=== PATIENT | female | born 1995 | race Caucasian/White ===

== ENCOUNTER 2019-02-21 14:15 | Outpatient (CLI) | payer MEDICAID, SELFPAY ==
[2019-02-21 14:30] VITALS: RESP 18; TEMP 36.7; BMI 27.0
--- NOTE | 2019-02-21 15:16 | US_ITS ---
WS: [id number] OB ultrasound, limited, 02/21/2019 Clinical Data: CERVICAL LENGTH Comparison: OB ultrasound, 12/24/2018. Findings: Cervical length was 5.60 cm with no previa. The cervix was closed. Placenta is anterior. US/US OB limited [id number] Impression: 1. Cervical length 5.60 cm. 2. Anterior placenta.
[2019-02-21 18:46] VITALS: RESP 18; TEMP 36.7
== END 2019-02-21 16:10 | disposition home or self-care (01) ==
PROVIDERS: Family Provider Family Medicine; Visit Provider Family Medicine
DX: O26.899 Other specified pregnancy related conditions, unspecified trimester (principal); Z3A.00 Weeks of gestation of pregnancy not specified; R25.2 Cramp and spasm; R11.10 Vomiting, unspecified
CPT/HCPCS: 76815; 99211

== ENCOUNTER 2019-02-25 13:30 | Outpatient (CLI) | payer MEDICAID, SELFPAY ==
--- NOTE | 2019-02-25 13:42 | US_ITS ---
WS: [id number] ULTRASOUND OB COMPLETE TECHNIQUE: Complete ultrasound. CLINICAL INFORMATION: ANATOMY CHECK/HIGH RISK COMPARISON: None. FINDINGS: Cervix measures 4.1 cm Single interuterine gestation is identified with breech presentation. Placenta is anterior. Placenta grade 1. Normal amniotic fluid volume. cardiac activity: 157 BPM. AGA: 23w4d VIRGIL by ultrasound: 06/20/2019 Estimated weight: 598 g BDP: 5.7 cm = 23w3d HC: 21.6 cm = 23w5d AC: 19.1 cm = 23w6d FEMUR LENGTH: 4.0 cm = 23w0d Anatomic survey: Anatomic survey is normal. Normal stomach. Kidneys and bladder are normal. Normal 3 vessel cord. Norm al 3 vessel cord insertion. Normal 4 chamber heart. Normal spine. Intracranial contents are normal. N ormal posterior fossa and cisterna magna. US/US OB >= 14 weeks fetus [id number] IMPRESSION: 1. Single intrauterine with visualized cardiac activity. AGA 23w4d w ith VIRGIL 06/20/2019. 2. Placenta is anterior. No evidence of abruption or previa. 3. presentation is breech. 4. anatomic survey is normal. 5. Normal amniotic fluid volume.
== END 2019-02-25 13:31 | disposition home or self-care (01) ==
PROVIDERS: Family Provider Family Medicine; PCP Family Medicine; Visit Provider Family Medicine
DX: O09.92 Supervision of high risk pregnancy, unspecified, second trimester (principal); Z3A.23 23 weeks gestation of pregnancy
CPT/HCPCS: 76805

== ENCOUNTER 2019-03-23 21:37 | Emergency (ER) | payer MEDICAID, SELFPAY ==
[2019-03-23 21:59] VITALS: BP 115/65; PULSE 100; RESP 18; TEMP 36.9; O2SAT 99; BMI 28.1
--- NOTE | 2019-03-23 22:49 | ECG_ITS ---
Measurements Intervals [place] Rate: 91 P: 17 ME: 197 QRS: 26 QRSD: 86 T: 29 QT: 342 QTc: 421 SINUS RHYTHM NONSPECIFIC T-WAVE ABNORMALITY No previous ECG available for comparison Electronically Signed On 03-24-2019 20:04:31 [employer] by Caitlin Parker M.D. [id number]
--- NOTE | 2019-03-23 22:50 | ED_ITS ---
HPI - Nausea/Vomiting/Diarrhea General: Chief complaint: Nausea/Vomiting/Diarrhea Stated complaint: puking up blood/28 weeks preg Time Seen by Provider: 03/23/19 22:41 History of Present Illness: HPI Narrative: Patient is a 23-year-old female who presents to the emergency department with 2 episodes of vomiting and one episode of bright red blood specks on the emesis today. She states she was feeling nauseated earlier but feeling a little bit better. She complains of some dizziness and lightheadedness. She states she is 28 weeks . She denies any vaginal bleeding, vaginal discharge, call pain or cramping. States she is G4, P2, Ab1. Unknown type and Rh. She denies any dysuria or fever. She states she did take a hydrocodone earlier for a broken tooth. She does see OB services. History of UTI, thyroid issues, iron deficiency anemia. She did start iron a few days ago. 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 She has had ureteral surgery as well and umbilical hernia surgery. No allergies medications. MD elicited complaint: nausea and vomiting Description of vomiting: bloody (blood tinged speck with emesis) Exacerbating factors: standing Relieving factors: none Associated symtoms: Reports other (dizzy, lightheaded); Denies anxiety, change in vision, dysuria or headache(s) Review of Systems Const: Denies: fever Eyes: Denies: change in vision ENMT: Denies: dry mouth Card: Denies: edema Resp: Denies: shortness of breath GI: Denies: abdominal pain : Denies: flank pain, difficulty urinating or painful urination Musc: Denies: extremity swelling or redness Skin/Breast: Denies: rash or skin swelling Neuro: Denies: headache or weakness in extremities Psych: Denies: anxiety Endo: Denies: excessive urination Joey/Lymph: Denies: purpura All/Imm: Denies: hives PFSH ED PFSH: Statuses (acute, chronic, etc) shown below reflect problem list status as previously entered and may not be historically accurate Social History Smoking and tobacco status: current every day smoker Physical Exam Const: COMMON NORMALS: no apparent distress, oriented x3 and alert ORIENTATION/CONSCIOUSNESS: Yes oriented to person and Yes oriented to place HENMT: COMMON NORMALS: normocephalic HEAD & SCALP: normal to inspection and normocephalic Eye: COMMON NORMALS: PERRL, EOMs intact bilaterally and conjunctivae normal GENERAL EYE: normal appearance of both eyes CONJUNCTIVA: Yes conjunctivae normal PUPIL: Yes PERRL Neck/C-Spine: COMMON NORMALS: full ROM, no lymphadenopathy, supple, no meningeal signs and no JVD GENERAL: Yes normal visual inspection and Yes trachea midline Lymph: LYMPHATIC: no lymphadenopathy noted Chest: COMMONS NORMALS: inspection of chest normal Resp: COMMON NORMALS: normal respiratory effort, no retractions and clear to auscultation bilaterally EFFORT & INSPECTION: Yes able to speak in complete sentences AUSCULTATION: clear to auscultation bilaterally Cardio: COMMON NORMALS: no JVD, regular rate and regular rhythm RATE: regular rate RHYTHM: regular rhythm GI: INSPECTION: Yes normal to inspection and Yes other (gravid abdomen) AUSCULTATION: Yes normoactive bowel sounds : COMMON NORMALS: Yes no CVA tenderness BLADDER/KIDNEY EXAM: Yes no CVA tenderness Back/Pelvis: COMMON NORMALS: no CVA tenderness THORACIC SPINE/UPPER BACK: Yes normal to inspection LUMBAR SPINE/LOWER BACK: Yes normal to inspection Extremity: COMMON NORMALS: normal to inspection, full ROM and normal capillary refill GENERAL: Yes normal exam except as noted Neuro: COMMON NORMALS: oriented x3, CN's II-XII intact bilaterally, moves all extremities, no focal motor deficits and no sensory deficits noted SENSORIUM/ORIENTATION: Yes alert, Yes oriented to person and Yes oriented to place MENINGEAL SIGNS: Yes no meningeal signs SPEECH: speech normal GAIT: Yes normal gait Psych: COMMON NORMALS: mental status grossly normal, thought process normal, cooperative, affect normal and speech normal APPEARANCE: Yes grossly normal SPEECH: Yes normal speech THOUGHT PROCESS: normal thought process Skin: COMMON NORMALS: no rashes or lesions noted, no wounds and skin turgor normal GENERAL SKIN EXAM: no rashes or lesions noted, elasticity normal and turgor normal Course ED course: Will place IV, obtain lab, heart tones for medical screening exam. Orthostatics ordered. Patient only had 1 episode of blood-tinged's emesis. Vital Signs: Vital signs: Vital Signs Temperature 98.5 F 03/23/19 21:59 Pulse Rate 78 03/23/19 23:40 Respiratory Rate 18 03/23/19 21:59 Blood Pressure 96/47 03/23/19 23:40 Pulse Oximetry 99 03/23/19 21:59 MDM - Nausea/Vomiting/Diarrhea MDM Narrative: Medical decision making narrative: Patient with ongoing iron deficiency anemia. She denies any melena or hematochezia. She denies any abdominal pain, vaginal bleeding or discharge with her . tones per nursing staff. Patient does have UTI. Will give Rocephin in the emergency department and discharged home with Macrobid. Patient has received a liter of fluids in the emergency room. She is instructed follow-up with her primary care provider for ongoing evaluation. No indication for additional laboratory imaging studies while in the emergency department for her medical screening exam. Lab Data: Labs: Lab Results 03/23/19 03/23/19 03/23/19 Range/Units 22:30 23:00 23:00 WBC 9.0 (4.0-10.0) 10^3/ uL RBC 3.41 L (4.1-5.3) 10^6/u L Hgb 9.7 L (11.5-15.3) g/dL Hct 30.1 L (37.0-47.0) % MCV 88.3 (81-99) fL MCH 28.4 (28.0-34.0) pg MCHC 32.2 (30.0-36.0) g/dL RDW 14.8 (12.1-15.1) % Plt Count 264 (130-400) 10^3/c mm MPV 10.7 H (7.4-10.4) fL Neut % (Auto) 76.4 % Lymph % (Auto) 17.9 % [place] % (Auto) 4.2 % Eos % (Auto) 0.9 % Baso % (Auto) 0.3 % Neut # (Auto) 6.8 (1.8-7.7) 10^3/u L Lymph # (Auto) 1.6 (0.8-4.8) 10^3/u L [place] # (Auto) 0.4 (0.2-0.9) 10^3/u L Eos # (Auto) 0.1 (0.0-0.8) 10^3/u L Baso # (Auto) 0.0 (0.0-0.1) 10^3/u L Nucleated RBC % (a uto) 0 % Nucleated RBCs # 0.0 /100WBC Sodium 133 L (136-145) mmol/L Potassium 3.7 (3.5-5.1) mmol/L Chloride 102 (98-107) mmol/L Carbon Dioxide 21 L (22-29) mmol/L Anion Gap 13.7 (5-19) BUN 6 (6-20) mg/dL Creatinine 0.4 L (0.5-0.9) mg/dL GFR Calculation 196.1 H (90-130) mL/min Glucose 80 (65-115) mg/dL Calcium 8.8 (8.5-10.5) mg/dL Total Bilirubin 0.4 (0.15-1.2) mg/dL AST 11 (0-32) U/L ALT 9 (0-33) U/L Alkaline Phosphata se 86 (35-105) IU/L Total Protein 6.8 (6.6-8.7) g/dL Albumin 3.8 (3.5-5.2) g/dL Globulin 3.0 (1.3-4.6) g/dL [place] , [place] [address].00 mIU/mL Urine Color Yellow (Yellow) Urine Appearance Cloudy (CLEAR) Urine pH 5 (5-7) Ur Specific Gravit y 1.025 (1.005-1.030) Urine Protein 2+ H (Negative) Urine Glucose (UA) Norm (Normal) Urine Ketones 1+ H (Negative) Urine Occult Blood Neg (Negative) Urine Nitrate Negative (Negative) Urine Bilirubin 1+ H (NEGATIVE) Urine Urobilinogen 1 H (Negative) mg/dL Ur Leukocyte Ale ase 2+ H (Negative) Urine RBC 0-4 H (0-2) /hpf Urine WBC 25-40 H (0-5) /hpf Ur Squamous Epith Cells 25-40 H (0-5) Urine Bacteria 1+ H (NONE) Urine Mucus 2+ Discharge Plan Discharge Patient Disposition: Home, Self-Care Clinical Impression: UTI (urinary tract infection) during Condition: Stable Prescriptions: New ondansetron HCl [Zofran] 4 mg tablet 4 mg PO Q8H PRN (Reason: nausea and vomiting) 4 Days Qty: 10 RF: 0 nitrofurantoin monohyd/m-cryst [Macrobid] 100 mg capsule 100 mg PO BID 7 Days Qty: 14 RF: 0 Protonix [address] for susp in packet 40 mg PO DAILY Qty: 30 RF: 0 No Action Celexa 1 tab PO DAILY RF: 0 levothyroxine 50 mcg Tablet 50 mcg PO DAILY RF: 0 ferrous sulfate 325 mg (65 mg iron) Tablet 325 mg PO DAILY RF: 0 Discharge Orders: Discharge Order (Routine); Ordered 03/24/19 Ordered By: Allen Matthews Referrals: Dee Padilla MD [Primary Care Provider] - Discharge Diet: Advance as tolerated Discharge Activity: Increase activity as tolerated Patient Instructions: (ED) Activity Restrictions/Additional Instructions: Take iron medication with food. Take medication as directed. Maintain bland diet. Follow-up with primary care provider for ongoing evaluation along with OB services. Return for worsening symptoms or concerns. Coding Level of Care Code ED [employer] for [employer] Exam Problem Focused
[2019-03-23 23:11] LABS: Basophils % 0.3 %; Eosinophils # 0.1 10^3/uL (0.0-0.8); Eosinophils % 0.9 %; Hematocrit 30.1 % (37.0-47.0); Hemoglobin 9.7 g/dL (11.5-15.3); Lymphocytes # 1.6 10^3/uL (0.8-4.8); Lymphocytes % 17.9 %; Mean Corpuscular HGB Conc 32.2 g/dL (30.0-36.0); Mean Corpuscular Hemoglobin 28.4 pg (28.0-34.0); Mean Corpuscular Volume 88.3 fL (81-99); Mean Platelet Volume 10.7 fL (7.4-10.4); Monocytes # 0.4 10^3/uL (0.2-0.9); Monocytes % 4.2 %; Neutrophils # 6.8 10^3/uL (1.8-7.7); Neutrophils % 76.4 %; Nucleated Red Blood Cells % 0 %; Platelet Count 264 10^3/cmm (130-400); Red Blood Count 3.41 10^6/uL (4.1-5.3); Red Cell Distribution Width 14.8 % (12.1-15.1)
[2019-03-23] MEDS: ondansetron 2 mg/ML SDV 2 mL 4 MG IVP (23:12)
[2019-03-23] MEDS: sodium chloride 0.9% 1,000 ML 999 ML IV (23:12)
--- NOTE | 2019-03-23 23:25 | PC.NURSE ---
Received patient to Er via ambulation complaint of n/v today that patient states was blood tinged. Patient is 28 weeks ,m denies Ob problems.
[2019-03-23 23:38] LABS: Add Urine Culture? No; Bacteria Urine 1+; Bilirubin Urine 1+ (NEGATIVE); Blood Urine Neg (Negative); Glucose Urine UA Norm (Normal); Ketones Urine 1+ (Negative); Leukocyte Esterase Urine 2+ (Negative); Mucus Urine 2+; Nitrate Urine Negative (Negative); Protein Urine 2+ (Negative); RBC Urine 0-4 /hpf (0-2); Specific Gravity, Urine 1.025 (1.005-1.030); Squamous Epithelial Cell Urine 25-40 (0-5); Urine Appearance Cloudy (CLEAR); Urine Color Yellow (Yellow); Urobilinogen Urine 1 mg/dL (Negative); WBC Urine 25-40 /hpf (0-5); pH Urine 5 (5-7)
[2019-03-23 23:39] LABS: Alanine Aminotransferase 9 U/L (0-33); Albumin Level 3.8 g/dL (3.5-5.2); Alkaline Phosphatase 86 IU/L (35-105); Anion Gap 13.7 (5-19); Aspartate Amino Transferase 11 U/L (0-32); Blood Urea Nitrogen 6 mg/dL (6-20); Calcium 8.8 mg/dL (8.5-10.5); Carbon Dioxide 21 mmol/L (22-29); Chloride 102 mmol/L (98-107); Glomerular Filtration Rate 196.1 mL/min (90-130); Glucose 80 mg/dL (65-115); Potassium 3.7 mmol/L (3.5-5.1); Sodium 133 mmol/L (136-145); Total Bilirubin 0.4 mg/dL (0.15-1.2); Total Protein 6.8 g/dL (6.6-8.7)
[2019-03-23 23:40] VITALS: BP 96/47; PULSE 78
--- NOTE | 2019-03-23 23:51 | PC.NURSE ---
Orthostatic vitals: lying 96/47 pulse 78,sitting 98/58 pulse 92, standing 104/60 pulse 86. Provider notified.
[2019-03-24] MEDS: cefTRIAXone 1,000 MG in sodium chloride 0.9% (plus) 50 ML 100 MG IV (00:16)
== END 2019-03-24 00:57 | disposition home or self-care (01) ==
PROVIDERS: Emergency Provider Nurse Practitioner; Family Provider Family Medicine; PCP Family Medicine
DX: O23.43 Unspecified infection of urinary tract in pregnancy, third trimester (principal); Z3A.28 28 weeks gestation of pregnancy; O99.333 Smoking (tobacco) complicating pregnancy, third trimester; F17.210 Nicotine dependence, cigarettes, uncomplicated
CPT/HCPCS: 80053; 81001; 84702; 85025; 93005; 96360; 96365; 96375; 99283; A9270; J0696; J2405; J7030

== ENCOUNTER 2019-04-17 00:10 | Outpatient (CLI) | payer MEDICAID, SELFPAY ==
[2019-04-17 00:30] VITALS: RESP 15; TEMP 36.8
[2019-04-17 01:25] VITALS: BP 113/65; PULSE 98; RESP 15; TEMP 36.9
--- NOTE | 2019-04-28 | US_ITS ---
WS: [id number] OB limited [id number] REASON FOR EXAM: GROWTH CHECK PER MICHAEL SCHEDULING FINDINGS: The cervix measured 5.71 cm appear to be closed. Vertex presentation the fetus. Anterior placenta is noted. heart rate 164 bpm The amniotic fluid indices normal. The biparietal diameter the head 8.12 cm 33 weeks 4 days gestation. The abdominal circumference 27.77 cm 31 weeks 6 days gestation Femoral length 6.31 cm 32 weeks 4 days gestation. Head circumference 31.04 cm 34 weeks 5 days gestation weight estimated 19 72 g (4 lbs. 6 oz.). Placenta appear to be a grade 2-3 placenta. The visualized parts ulna or developing satisfactorily. With normal abdominal several survey.
== END 2019-04-17 01:27 | disposition home or self-care (01) ==
PROVIDERS: Family Provider Family Medicine; PCP Family Medicine; Visit Provider Family Medicine
DX: O26.899 Other specified pregnancy related conditions, unspecified trimester (principal); Z3A.00 Weeks of gestation of pregnancy not specified; R10.9 Unspecified abdominal pain
CPT/HCPCS: 99211

== ENCOUNTER 2019-04-28 07:07 | Outpatient (CLI) | payer MEDICAID, SELFPAY ==
--- NOTE | 2019-04-28 | US_ITS ---
WS: [id number] US OB limited [id number] REASON FOR EXAM: GROWTH CHECK PER MICHAEL SCHEDULING FINDINGS: The cervix measured 5.71 cm appear to be closed. Vertex presentation the fetus. Anterior placenta is noted. heart rate 164 bpm The amniotic fluid indices normal. The biparietal diameter the head 8.12 cm 33 weeks 4 days gestation. The abdominal circumference 27.77 cm 31 weeks 6 days gestation Femoral length 6.31 cm 32 weeks 4 days gestation. Head circumference 31.04 cm 34 weeks 5 days gestation weight estimated 19 72 g (4 lbs. 6 oz.). Placenta appear to be a grade 2-3 placenta. The visualized parts ulna or developing satisfactorily. With normal abdominal several survey. US/US OB limited [id number] IMPRESSION: Fetus at 32 weeks 6 days gestation Expected date of confinement June 16, 2019 by ultrasound criteria by today's find ings june.
== END 2019-04-28 07:08 | disposition home or self-care (01) ==
LOC: RAD 07:11
PROVIDERS: Family Provider Family Medicine; PCP Family Medicine; Visit Provider Family Medicine
DX: O26.843 Uterine size-date discrepancy, third trimester (principal); Z3A.32 32 weeks gestation of pregnancy
CPT/HCPCS: 76815

== ENCOUNTER 2019-05-07 22:07 | Outpatient (CLI) | payer MEDICAID, SELFPAY ==
[2019-05-07 22:27] VITALS: BP 107/59; PULSE 94; RESP 16; TEMP 36.9
[2019-05-07 22:42] VITALS: BP 110/66; PULSE 104
[2019-05-07 22:57] VITALS: BP 86/50; PULSE 90
[2019-05-07 23:15] VITALS: BP 106/62; PULSE 89; RESP 16; TEMP 36.9
--- NOTE | 2019-05-08 02:54 | PC.NURSE ---
Pt. was shown to room and instructed to change into gown and belly band. Pt. in bed and external fht monitor in place.
--- NOTE | 2019-05-08 02:56 | PC.NURSE ---
Cervical exam completed. H2O was brought to pt. and instructed to drink the whole cup.
--- NOTE | 2019-05-08 03:13 | PC.NURSE ---
Discharge instructions given
== END 2019-05-07 23:15 | disposition home or self-care (01) ==
LOC: OPOB 22:09 → OBGYN 22:18 → OPOB 05-08 07:56
PROVIDERS: Family Provider Family Medicine; PCP Family Medicine; Visit Provider Family Medicine
DX: O26.899 Other specified pregnancy related conditions, unspecified trimester (principal); Z3A.00 Weeks of gestation of pregnancy not specified; R10.2 Pelvic and perineal pain
CPT/HCPCS: 99211

== ENCOUNTER 2019-06-15 18:04 | Outpatient (CLI) | payer MEDICAID, SELFPAY ==
[2019-06-15 18:10] VITALS: BMI 28.8
[2019-06-15 18:19] VITALS: BP 111/67; PULSE 118
[2019-06-15 18:26] VITALS: RESP 16; TEMP 37.5
[2019-06-15 18:29] LABS: Nitrazine Paper, PH Negative
[2019-06-15 18:38] VITALS: BP 101/63; PULSE 107
== END 2019-06-15 18:45 | disposition home or self-care (01) ==
LOC: OPOB 18:07 → OBGYN 18:07
PROVIDERS: Family Provider Family Medicine; PCP Family Medicine; Visit Provider Family Medicine
DX: O26.899 Other specified pregnancy related conditions, unspecified trimester (principal); Z3A.00 Weeks of gestation of pregnancy not specified; R10.9 Unspecified abdominal pain
CPT/HCPCS: 59025; 83986; 99211

== ENCOUNTER 2019-06-16 12:06 | Inpatient (IN) | payer MEDICAID, SELFPAY ==
[2019-06-16] VITALS (37 sets, daily range): BP systolic 0–113; BP diastolic 0–68; PULSE 87–135; RESP 16; TEMP 36.6–37.4; O2SAT 91–100; BMI 28.8
--- NOTE | 2019-06-16 12:33 | PM.OBGYHP ---
Providers/Chief Complaint Admitting Physician: Dee Padilla MD Primary Care Provider: Dee Padilla MD Chief Complaint: IUP HPI BUSINESS DEVELOPMENT ASSISTANT History of Present Illness Page Bravo is a 23 year old female 4 para 1-1-1-2 with an EDC of 06/19/2019 as determined by early ultrasound. She presents at 39-3/7 weeks gestation with onset of labor. She stated that her contractions began at 7 AM this morning and have been increasing in frequency and intensity since that time. She had not OB visit scheduled for this morning with myself, however, her van broke down. We advised her that with increasing frequency and intensity of her contractions she should take EMS into the hospital. Patient states she has had no bleeding and no leakage of fluid. She desires a trial of labor after section. Her course has been complicated by tobacco smoking during , hypothyroidism and anemia of . She is also had a uterine size date discrepancy which has been evaluated by ultrasound which revealed normal interval growth. Present Details : 4 Para: 2 Date of Last Menstrual Period: 09/27/18 Calculated Date of Delivery: 07/04/19 Gestational Age Based on Last Menstrual Period: 37 Dating criteria OB: based on 1st trimester US only care: good care Ultrasounds: normal 1st trimester US and normal mid trimester US Obstetrical complications: other (Trial of labor after section) Medical complications OB: other (Hypothyroidism, anemia) Labs Blood type OB HPI: A (+) positive Rubella: Immune RPR: Negative GBS: Negative HBsAG: Negative Other Lab Information: INITIAL LABS: Blood Type: A D (Rh) Type: Positive Antibody Screen: Negative HCT/HB.4/35.2 Pap Test: Normal Rubella: Immune VDRL: Nonreactive Urine Culture/Screen: Negative HBsAg: Negative HIV Testing: Negative Influenza Shot: Given on 12/17/2018 Hepatitis C: Negative Chlamydia: Negative GC: Negative Varicella Titer: Immune MSAFP/Multiple Markers: Negative 24-30 WEEK LABS: HCT/HGB: 11.9 Diabetes Screen: 97 Tdap: Given on 03/20/2019 32-36 WEEK LABS: Group B Strep (35-37 weeks): Negative Urine Drug Screen: Negative TSH: Initially 2.12, checked every trimester and adjusted until within goal for each trimester Medications/Allergies Home Medications Medication Instructions Recorded Confirmed Last Taken Type ferrous sulfate 325 mg PO DAILY 03/23/19 06/15/19 1 Week Ago History ~06/08/19 levothyroxine 100 mcg PO DAILY 03/23/19 06/15/19 1 Week Ago History ~06/08/19 Allergies Allergy/AdvReac Type Severity Reaction Status Date / Time No Known Allergies Allergy Verified 06/16/19 12:37 PFSH BUSINESS DEVELOPMENT ASSISTANT PFSH: Medical History (Updated 06/16/19 @ 13:27 by Dee Padilla MD) Anxiety Asthma, mild intermittent Depression Hypothyroidism Seasonal allergies Surgical History (Updated 06/16/19 @ 13:24 by Dee Padilla MD) H/O oral surgery Cleft lip and palate repair, 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 History of section, low transverse 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) Family History (Updated 06/16/19 @ 12:43 by Dee Padilla MD) Grandfather Thyroid disorder Father Cancer Social History (Updated 06/16/19 @ 12:50 by Dee Padilla MD) Smoking and tobacco status: current every day smoker Second hand smoke exposure: Yes Alcohol intake: former Former alcohol use details: On occasion prior to Caregiver/support person: Yes Lives independently: Yes Household members: spouse and children Marital status: Legally Number of children: 2 Number of grandchildren: 0 Highest education level completed: High School Graduate Current occupational status: employed Current occupation: Customer service Other Female Reproductive History: Hx Age of Menarche: 12 Duration of menses: 3-5 days Date of Last Menstrual Period: 07/04/19 Menstrual flow: normal/abnormal: normal History History History 4 Term 1 Miscarriages/Ectopic 1 1 Living Children 2 Past Pregnancies Del. Date GA/Weeks Outcome Route Wt Inf Gender Labor Lgth Comp. Anesthesia Location 02/12/13 6 spontaneous 03/16/15 42 live - full term Vaginal 7 lb 7 oz [facility] 04/06/16 36 live - 7 lb 7 oz [facility] Delivery Date: 02/12/13 On 06/16/19 @ 12:53 Dee Padilla No D&C needed Delivery Date: 03/16/15 No notes to display Delivery Date: 04/06/16 On 06/16/19 @ 13:00 Dee Padilla was scheduled shortly after diagnosis of baby's chylothorax, hydramnios Vitals/I&O/Wt Last Vital Signs Pulse 100 06/16/19 12:14 BP 110/55 06/16/19 12:14 Physical Exam Narrative: EXAM NARRATIVE: Please refer to her record for complete physical examination. heart tones are category 1 with baseline 130s, moderate variability, some accelerations and no decelerations. Contractions are every 2 to 4 minutes and strong. Const: COMMON NORMALS: no apparent distress (Is somewhat uncomfortable and breathing through contractions), oriented x3, healthy appearing, alert and well nourished GENERAL APPEARANCE: cooperative : MANUAL OB EXAM: dilated 6 cm, effaced 50%, station -2 and other (Vertex, bulging bag of water) Psych: COMMON NORMALS: mental status grossly normal, thought process normal, cooperative, affect normal, speech normal, activity/motor behavior normal, denies hallucinations, denies homicidal ideation and denies suicidal ideation Data : 06/16/19 12:35 A&P Assessment and plan (1) 39 weeks gestation of : Status: Acute (2) Spontaneous onset of labor: Status: Acute (3) Smoking (tobacco) complicating , third trimester: Status: Acute (4) Hypothyroidism affecting , antepartum: Status: Acute (5) Anemia complicating : Status: Acute (6) History of section, low transverse: Patient arrived via EMS and was initially assessed at 8 to 9 cm dilated, 50% effaced and -2 station domitila frequently and intensely. Dr. Redman and myself were notified and arrived at the hospital immediately. Patient was then found to be 6 cm dilated with a bulging bag of water and cervix very soft and stretchy. She requested an epidural, and we are preparing for it. Past report will be faxed to the labor room. In the office over several appointments we have discussed the advantages and disadvantages and potential complications of trial of labor after section. Patient has requested trial of labor after section. Status: Acute (7) Request for sterilization: Patient has signed her consent on 03/27/2019 and has been contacted by [facility]. We will consult them upon her delivery to determine timing of this procedure. Status: Acute Attestations Medical Necessity Statement*: As patient is actively laboring and is a trial of labor after section, she will need to remain hospitalized as an inpatient. Coding Level of Care Code Acute Mail Agent for Chg Fwd Exam Expanded Problem Focused Diagnoses 39 weeks gestation of Z3A.39 Spontaneous onset of labor Smoking (tobacco) complicating , third trimester O99.333 Hypothyroidism affecting , antepartum O99.280; E03.9 Anemia complicating O99.019 History of section, low transverse Z98.891 Request for sterilization Z30.2
[2019-06-16 13:07] LABS: Basophils % 0.2 %; Hematocrit 33.6 % (37.0-47.0); Hemoglobin 10.9 g/dL (11.5-15.3); Lymphocytes # 1.2 10^3/uL (0.8-4.8); Lymphocytes % 5.4 %; Mean Corpuscular HGB Conc 32.4 g/dL (30.0-36.0); Mean Corpuscular Hemoglobin 28.6 pg (28.0-34.0); Mean Corpuscular Volume 88.2 fL (81-99); Mean Platelet Volume 12.7 fL (7.4-10.4); Monocytes # 0.8 10^3/uL (0.2-0.9); Monocytes % 3.4 %; Neutrophils # 20.2 10^3/uL (1.8-7.7); Neutrophils % 90.3 %; Nucleated Red Blood Cells % 0 %; Platelet Count 217 10^3/cmm (130-400); Red Blood Count 3.81 10^6/uL (4.1-5.3); White Blood Count 22.3 10^3/uL (4.0-10.0)
--- NOTE | 2019-06-16 14:06 | P.ANESASSM_ITS ---
Pre-Anesthetic Assessment Pre-Anesthetic Assessment: Height/Weight: Height 1.73 m Pulse BP Pulse Ox 104 H 0/0 100 06/16/19 14:01 06/16/19 14:04 06/16/19 13:47 Preop Diagnosis: IUP Proposed Procedure: epidurla Familial anesthetic complications: None Was Beta Teodoro taken within 24 hours: N/A Last intake: 0900 pm yesterday - solid 1030 today - fluids Social: Social History: Tobacco and No alcohol Exam: Pre-Anes Outpt Exam: alert, oriented x 3, clear to auscultation bilaterally and regular rate & rhythm Airway: Cervical ROM: WNL MP: 2 Additional comments: missing Pulmonary: Pulmonary: None reported CV/HEM: CV/HEM: None reported : : None reported Hepatic: Hepatic: None reported GI: GI: None reported Metabolic: Metabolic: Thyroid Musc/skel: Musc/skel: None reported Neuropsych: Neuropsych: None reported Anesthetic Plan: ASA status: 2 Anesthesia: General and Regional (specify below) Other: epidural Risk of > 500 ml blood loss (7ml/kg in children): No PFSH Anesthesia PFSH: Medical History (Updated 06/16/19 @ 13:27 by Dee Padilla MD) Anxiety Asthma, mild intermittent Depression Hypothyroidism Seasonal allergies Surgical History (Updated 06/16/19 @ 13:24 by Dee Padilla MD) H/O oral surgery Cleft lip and palate repair, 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 History of section, low transverse 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) Family History (Updated 06/16/19 @ 12:43 by Dee Padilla MD) Grandfather Thyroid disorder Father Cancer Social History (Updated 06/16/19 @ 12:50 by Dee Padilla MD) Smoking and tobacco status: current every day smoker Second hand smoke exposure: Yes Alcohol intake: former Former alcohol use details: On occasion prior to Caregiver/support person: Yes Lives independently: Yes Household members: spouse and children Marital status: Legally Number of children: 2 Number of grandchildren: 0 Highest education level completed: High School Graduate Current occupational status: employed Current occupation: Customer service Female Reproductive History: Date of last menstrual period: 09/27/18 : 4 Data Anesthesia CBC & Chem 7: 06/16/19 12:35 Other Labs: Laboratory Results - last 48 hr 06/16/19 12:35 WBC 22.3 H RBC 3.81 L Hgb 10.9 L Hct 33.6 L MCV 88.2 MCH 28.6 MCHC 32.4 RDW 16.0 H Plt Count 217 MPV 12.7 H Neut % (Auto) 90.3 Lymph % (Auto) 5.4 [place] % (Auto) 3.4 Eos % (Auto) 0.0 Baso % (Auto) 0.2 Neut # (Auto) 20.2 H Lymph # (Auto) 1.2 [place] # (Auto) 0.8 Eos # (Auto) 0.0 Baso # (Auto) 0.0 Nucleated RBC % (auto) 0 Nucleated RBCs # 0.0 Cardiac Studies: No Data to Display
--- NOTE | 2019-06-16 14:07 | ANES.PROC ---
Anesthesia Procedures Procedure/Date: 06/16/19 Epidural: Time Out Performed: Yes Consents Signed: Procedure Consent and NPO Consent Consent: requested by attending/covering physician, from patient, risks and benefits reviewed and patient agrees to proceed Lumbar Level: L3-L4 Epidural position: sitting Epidural procedure: sterile prep of area, 1% lidocaine to numb the area, 18 g needle, negative for paresthesia passed, neg for paresthesia, test dose given, 1.5% xylocaine 1:200k epi (3 ml), placed PCEA, no systemic response, sterile dressing applied and 0.2% Ropiavacaine @ mls/hr (13 ml/hr) Additional Comments: SUMIT at 5.5 threaded to 10.5 cm, bupivicaine 0.25% 8 cc/ fentanyl 100 mcg given with relief except in R inguinal region. Bolused another bupivicaine 0.25% 3 cc and had patient push her bolus button, which provided relief in the R inguinal region, unable to feel subsequent contraction
--- NOTE | 2019-06-16 14:52 | P.PCNOB_ITS ---
Delivery Note: Date of delivery: June 16, 2019 Pre-Delivery Course: Patient arrived a few hours ago via EMS with contractions every 2 to 3 minutes increasing in intensity. Upon arrival she was thought to be 8 to 9 cm dilated and 50% effaced and -2 station, however, upon recheck she was found to be 6 cm dilated with a bulging bag of water. She opted for an epidural, received it and became comfortable. Just after placement of her Anderson catheter, repeat cervical exam found her to be completely dilated and +2 station. This was at 1411. Amniotomy was performed at 1415 and was productive of a moderate amount of thick meconium with a foul odor. Patient began to have some variable decelerations. Delivery: We began the active portion of the second stage of her labor at 1420, and 4 minutes later at 1424 she delivered a viable male . Head was DELIA. Bulb suctioning was done upon delivery of the baby's head. There was a nuchal cord x1 which was easily manually reduced on the perineum. Bulb suctioning was then done upon delivery of baby's body. Baby was quickly placed on maternal abdomen and the cord was clamped and cut by myself. Baby was then taken to the warmer for further resuscitative measures. Gentle traction was placed on the cord, and Pitocin was given intravenously in routine doses The placenta delivered at 1431 and appeared intact and quite mature and meconium stained. Perineum and cervix were inspected, and there was intact perineum with the exception of some very superficial bilateral periurethral abrasions which did not require any type of repair. Fundal exam revealed a firm uterus. Uterine exploration revealed small clots which were easily manually extracted. Post-Delivery Status: Mother is stable and had an estimated blood loss of 200 mL. Baby had Apgars of 4 at 1 minute and 9 at 5 minutes. He weighed 2975 g / 6 pounds 9 ounces and was 20-1/2 inches in length. A&P Assessment and plan (1) 39 weeks gestation of : Status: Resolved (2) Spontaneous onset of labor: Status: Resolved (3) Smoking (tobacco) complicating , third trimester: Status: Resolved (4) Hypothyroidism affecting , antepartum: Status: Resolved (5) Anemia complicating : Status: Resolved (6) History of section, low transverse: Status: Acute (7) Request for sterilization: I spoke with Dr. Castaneda of women's health care, and, given the COVID-19 pandemic, we are checking into the feasibility of an elective hospital procedure. Status: Acute (8) Vaginal after delivery: Routine orders Status: Acute (9) Rupture of membranes with meconium present: Status: Acute (10) Intact perineum: Status: Acute Coding Level of Care Code Acute Financial Wellness Coach for [facility] Fwd Diagnoses 39 weeks gestation of Z3A.39 Spontaneous onset of labor Smoking (tobacco) complicating , third trimester O99.333 Hypothyroidism affecting , antepartum O99.280; E03.9 Anemia complicating O99.019 History of section, low transverse Z98.891 Request for sterilization Z30.2 Vaginal after delivery O34.219 Rupture of membranes with meconium present O77.0 Intact perineum
[2019-06-16] MEDS: lanolin oint 7 gm 1 APPLIC TOPICAL (17:21)
[2019-06-16] MEDS: docusate sodium 100 mg Capsule PO (17:21)
[2019-06-16] MEDS: benzocaine-menthol 78 gm Canister 1 SPRAY TOPICAL (17:21)
--- NOTE | 2019-06-16 18:39 | P.CONIM_ITS ---
Providers/Reason For Consult Consulting Physican/Specialty*: Dr. Oliver Castaneda Reason for Consult*: Desires sterilization Requesting Physcian: Dee Padilla MD Attending Physician: Dee Padilla MD Primary Care Provider: Dee Padilla MD History of Present Illness History of Present Illness Page Bravo is a 23 year old female 4, now para 2-1-1-3 with an EDC of 06/19/2019 based on early ultrasound. She had presented to L&D with labor. She had had a prior section and was attempting . She had delivered vaginally without complication at 14:24 today. Patient had requested sterilization and had signed consent form with Dr. Padilla at her office. After delivery, she was still requesting sterilization and I was consulted regarding this. Patient states she is adamant that she does not want any further children and wants to have a sterilization performed. She is without any other complaints at this time. Review of Systems Const: Denies: fever or chills ENMT: Denies: throat pain or nasal congestion Card: Denies: chest pain or palpitations Resp: Denies: shortness of breath, productive cough, non-productive cough or w heezing GI: Denies: abdominal pain, nausea or vomiting : Reports: urinary frequency and vaginal bleeding; Denies: painful urination or genital itching Neuro: Denies: headache or dizziness Psych: Reports: anxiety and depression Endo: Denies: excessive urination, excessive thirst or cold intolerance Joey/Lymph: Denies: easy bruising or easy bleeding Meds/Allergies Home Medications and Allergies Home Medications Medication Instructions Recorded Confirmed Last Taken Type ferrous sulfate 325 mg PO DAILY 03/23/19 06/15/19 1 Week Ago History ~06/08/19 levothyroxine 100 mcg PO DAILY 03/23/19 06/15/19 1 Week Ago History ~06/08/19 Allergies Allergy/AdvReac Type Severity Reaction Status Date / Time No Known Allergies Allergy Verified 06/16/19 12:37 Current Medications Current Medications Generic Name Dose Route Start Last Admin Trade Name Freq PRN Reason Stop Dose Admin Benzocaine 1 spray 06/16/19 15:22 06/16/19 17:21 Dermoplast TOPICAL 1 spray PRN PRN Administration PAIN Docusate Sodium 100 mg 06/16/19 18:00 06/16/19 17:21 Colace PO 100 mg BID JAZMYN Administration Lanolin 1 applic 06/16/19 15:22 06/16/19 17:21 Lanolin Oint TOPICAL 1 appful PRN PRN Administration DRYNESS PFSH Acute PFSH: Medical History (Updated 06/16/19 @ 18:48 by Oliver Castaneda MD) Anxiety Asthma, mild intermittent Depression Hypothyroidism Seasonal allergies Surgical History H/O oral surgery Cleft palate repair, 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 Reports had multiple surgeries. History of section, low transverse History of umbilical hernia repair Age 2. 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) Family History Grandfather Thyroid disorder Father Cancer Social History (Updated 06/16/19 @ 18:45 by Oliver Castaneda MD) Smoking and tobacco status: current every day smoker Second hand smoke exposure: Yes Alcohol intake: former Former alcohol use details: On occasion prior to Substance/Drug Use: never Caregiver/support person: Yes Lives independently: Yes Household members: spouse and children Marital status: Legally Number of children: 2 Number of grandchildren: 0 Highest education level completed: High School Graduate Current occupational status: employed Current occupation: Customer service Female Reproductive History: Date of last menstrual period: 09/27/18 : 4 Vitals/I&O/Wt Last Vital Signs Temp 99.4 F 06/16/19 16:15 Pulse 100 06/16/19 17:12 Resp 16 06/16/19 16:15 BP 112/66 06/16/19 17:12 Pulse Ox 100 06/16/19 13:47 06/16/19 06/16/19 06/16/19 06:59 14:59 22:59 Output Total 250 / 250 Balance -250 / -250 Weight last 48 hrs Weight 190 lb Physical Exam Const: COMMON NORMALS: no apparent distress, average body habitus, alert and well nourished GENERAL APPEARANCE: well developed ORIENTATION/CONSCIOUSNESS: Yes oriented to person, Yes oriented to place and Yes oriented to time Neck/C-Spine: COMMON NORMALS: thyroid normal GENERAL: Yes trachea midline THYROID: thyroid normal Resp: COMMON NORMALS: normal respiratory effort and clear to auscultation bilaterally AUSCULTATION: clear to auscultation bilaterally Cardio: COMMON NORMALS: regular rate, regular rhythm, no gallops, no murmurs and no rub RATE: regular rate RHYTHM: regular rhythm PERIPHERAL PULSES: posterior tibial pulses present GI: COMMON NORMALS: soft to palpation, non-tender, no hepatosplenomegaly and no masses (Except for palpable uterus, approx 2 fingerbreaths below umbilicus) INSPECTION: Yes scar (Pfannenstiel scar, Umbilical scar) AUSCULTATION: Yes normoactive bowel sounds PALPATION: Yes soft, Yes no hepatosplenomegaly and No hernia : EXTERNAL FEMALE EXAM: No hernia Extremity: COMMON NORMALS: no calf tenderness NARRATIVE EXTREMITY EXAM: Trace lower extremity edema Neuro: SENSORIUM/ORIENTATION: Yes alert, Yes oriented to person, Yes oriented to place and Yes oriented to time Psych: COMMON NORMALS: affect normal MOOD & AFFECT: Yes euthymic mood Skin: COMMON NORMALS: no rashes or lesions noted GENERAL SKIN EXAM: no rashes or lesions noted Urinary Catheter Management^: Anderson: Cath Placed During This Visit: yes, but has since been removed by the nurse Reason for Continuing Indwelling Catheter: Decision to DC Catheter Urinary Catheter Date of Insertion: 06/16/19 Urinary Catheter Time of Insertion: 14:05 Date Urinary Catheter Removed: 06/16/19 Time Urinary Catheter Discontinued: 14:18 A&P Assessment and plan (1) Sterilization consult: Permanence of sterilization was discussed with the patient in detail. Alternatives including control pills, Ortho Evra, NuvaRing, Depo-Provera, IUDs, Nexplanon, condoms, diaphragms, family planning methods, and vasectomy were discussed with the patient. Risks and failure rates associated with these methods were discussed. Different sterilization methods including and interval sterilization by partial salpingectomy, complete salpingectomy, tubal fulguration, and Falope ring application were discussed including failure rates, surgical risks, and expectations following surgery. Inability of complete salpingectomy to be reversed was discussed. Risk of ectopic was discussed. Questions were answered and she wished to proceed with sterilization. However, she would like to proceed with complete removal of the tubes as a laparoscopic surgery at approximately 5 to 6 weeks . Medicaid consent was signed on 03/27/[address] Padilla. Patient to be scheduled for an outpatient laparoscopic bilateral tubal fulguration with complete salpingectomy when she is approximately 5 to 6 weeks . Status: Acute Coding Level of Care Code Acute Freight Associate for [facility] Fwd Exam Comprehensive Diagnoses Sterilization consult Z30.09
[2019-06-17 00:43] VITALS: BP 102/55; PULSE 75; RESP 16; TEMP 36.7; O2SAT 95
[2019-06-17 03:54] LABS: Hematocrit 28.4 % (37.0-47.0); Mean Corpuscular HGB Conc 31.7 g/dL (30.0-36.0); Mean Corpuscular Hemoglobin 28.1 pg (28.0-34.0); Mean Corpuscular Volume 88.8 fL (81-99); Mean Platelet Volume 12.1 fL (7.4-10.4); Platelet Count 193 10^3/cmm (130-400); White Blood Count 21.6 10^3/uL (4.0-10.0)
[2019-06-17 04:30] VITALS: BP 101/62; PULSE 74; RESP 16; TEMP 36.5
--- NOTE | 2019-06-17 07:29 | PM.OBGYDC ---
Discharge Providers SNOW REMOVAL SUPERVISOR Date of Admission: 06/16/19 12:06 Date of Discharge: 06/17/19 Attending Provider at Admission: Dee Padilla MD Attending Provider at Discharge: Dee Padilla MD Primary Care Provider: Dee Padilla MD Diagnoses at Discharge Discharge Diagnosis (1) Sterilization consult: Status: Acute Problem details: Patient has discussed salpingectomy with Dr. Castaneda, and she and her spouse may even decide to go with vasectomy. In either case they will get back with us on their decision. (2) Intact perineum: Status: Acute (3) Vaginal after delivery: Status: Acute (4) Anemia complicating : Status: Resolved Problem details: Since her hemoglobin is 9 12 hours post delivery we will have her continue with her iron at home for the next few weeks. (5) Hypothyroidism affecting , antepartum: Status: Resolved Problem details: We will check a TSH at her 6-week visit. Reason for Visit Reason for Visit: Reason For Visit: IUP Hospital Course Hospital Course: Patient arrived yesterday late morning via EMS and was thought to be 8 to 9 cm dilated with a bulging bag of water. However, upon recheck, she was 6 cm dilated, 50% effaced and -2 station with a bulging bag of water. She was domitila every few minutes with increasing frequency and intensity. She opted for an epidural, received it and became comfortable. Upon recheck she was completely dilated and +2 station. Amniotomy was performed and consisted of a moderate amount of thick meconium with a foul odor. Patient delivered within minutes of rupture of membranes and had an intact perineum. day 1 she is doing well with some cramping with breast-feeding which responds to ibuprofen, and minimal bleeding. She and her are discussing vasectomy versus salpingectomy in 6 weeks. She feels that baby is doing fine and has no concerns and is ready to be discharged home later today. Discharge Summary: As above. Repeat CBC revealed near resolution of the leukocytosis thought to be reactive in nature. Information Peripartum Data: Infant Delivery Method: Laceration description: None Episiotomy description: None complications: none Physical Exam Const: COMMON NORMALS: no apparent distress, average body habitus, oriented x3, no limitations, healthy appearing, alert and well nourished Resp: COMMON NORMALS: normal respiratory effort, no retractions, no use of accessory muscles and clear to auscultation bilaterally AUSCULTATION: clear to auscultation bilaterally Cardio: COMMON NORMALS: regular rate, regular rhythm, S1 normal heart sound, S2 normal heart sound, no gallops, no clicks, no murmurs, no rub and peripheral pulses 2+ throughout RATE: regular rate RHYTHM: regular rhythm HEART SOUNDS: S1 normal and S2 normal PERIPHERAL PULSES: pulses 2+ throughout : UTERUS PALPATION: Yes other OB (Fundus is firm, deep and 3 fingerbreadths below the umbilicus, nontender) Extremity: COMMON NORMALS: no pedal edema Neuro: COMMON NORMALS: oriented x3 SENSORIUM/ORIENTATION: Yes alert Psych: COMMON NORMALS: mental status grossly normal, thought process normal, cooperative, affect normal, speech normal and activity/motor behavior normal SPEECH: Yes normal speech THOUGHT PROCESS: normal thought process Urinary Catheter Management^: Anderson: Cath Placed During This Visit: yes, but has since been removed by the nurse Reason for Continuing Indwelling Catheter: Decision to DC Catheter Urinary Catheter Date of Insertion: 06/16/19 Urinary Catheter Time of Insertion: 14:05 Date Urinary Catheter Removed: 06/16/19 Time Urinary Catheter Discontinued: 14:18 Discharge Data Data Completed and Pending: Pending at discharge Category Date Time Status Complete Blood Co unt w/Auto Timed Lab 06/17/19 13:30 Ordered Labs from last 24 hours 06/17/19 06/16/19 03:30 12:35 WBC 21.6 H 22.3 H RBC 3.20 L 3.81 L Hgb 9.0 L 10.9 L Hct 28.4 L 33.6 L MCV 88.8 88.2 MCH 28.1 28.6 MCHC 31.7 32.4 RDW 16.0 H 16.0 H Plt Count 193 217 MPV 12.1 H 12.7 H Neut % (Auto) 90.3 Lymph % (Auto) 5.4 [place] % (Auto) 3.4 Eos % (Auto) 0.0 Baso % (Auto) 0.2 Neut # (Auto) 20.2 H Lymph # (Auto) 1.2 [place] # (Auto) 0.8 Eos # (Auto) 0.0 Baso # (Auto) 0.0 Nucleated RBC % (a uto) 0 Nucleated RBCs # 0.0 Vitals: Last Vital Signs Temp 98.0 F 06/17/19 00:43 Pulse 75 06/17/19 00:43 Resp 16 06/17/19 00:43 BP 102/55 06/17/19 00:43 Pulse Ox 95 06/17/19 00:43 Discharge Plan Discharge Patient Disposition: Home, Self-Care Condition: Stable Prescriptions: Continued levothyroxine 50 mcg Tablet 100 mcg PO DAILY RF: 0 ferrous sulfate 325 mg (65 mg iron) Tablet 325 mg PO DAILY RF: 0 Discharge Orders: Discharge Order (Routine); Ordered 06/17/19 Ordered By: Dee Padilla Referrals: Dee Padilla MD [Primary Care Provider] - 6 Weeks Discharge Diet: Usual diet Discharge Activity: Limit activity as instructed Discharge Attestations SNOW REMOVAL SUPERVISOR Time Spent in Discharge Care*: less than 30 min Specific Discharge Activities: Specific discharge activities: educating patient, documenting/other paperwork and evaluating patient/reviewing data Status at Discharge: Cognitive status at discharge: cognitively intact, Behavioral status at discharge: cooperative, Functional status at discharge: independent ambulation Overall status at discharge: patient is progressing back to baseline Coding Level of Care Code Acute Cytotechnologist/Cytology Supervisor for [facility] Fwd Exam Detailed Diagnoses Sterilization consult Z30.09 Intact perineum Vaginal after delivery O34.219 Anemia complicating O99.019 Hypothyroidism affecting , antepartum O99.280; E03.9
[2019-06-17] MEDS: prenatal vitamin Capsule 1 CAP PO (09:00)
[2019-06-17] MEDS: docusate sodium 100 mg Capsule PO (09:01)
[2019-06-17 09:55] VITALS: BP 98/57; PULSE 77; RESP 16; TEMP 36.6; O2SAT 97
--- NOTE | 2019-06-17 10:44 | PC.NURSE ---
Call to Dr. Padilla Call to Dr. Padilla at this time. She stated that she wanted the placenta sent to lab for culture.
[2019-06-17 14:11] LABS: Basophils # 0.1 10^3/uL (0.0-0.1); Basophils % 0.4 %; Eosinophils # 0.1 10^3/uL (0.0-0.8); Eosinophils % 0.8 %; Hematocrit 28.3 % (37.0-47.0); Lymphocytes # 2.4 10^3/uL (0.8-4.8); Mean Corpuscular HGB Conc 31.8 g/dL (30.0-36.0); Mean Corpuscular Hemoglobin 28.2 pg (28.0-34.0); Mean Corpuscular Volume 88.7 fL (81-99); Mean Platelet Volume 12.2 fL (7.4-10.4); Monocytes # 0.6 10^3/uL (0.2-0.9); Monocytes % 3.5 %; Neutrophils # 13.8 10^3/uL (1.8-7.7); Neutrophils % 80.7 %; Nucleated Red Blood Cells % 0 %; Platelet Count 218 10^3/cmm (130-400); Red Blood Count 3.19 10^6/uL (4.1-5.3); Red Cell Distribution Width 16.3 % (12.1-15.1)
[2019-06-17 16:33] VITALS: BP 120/74; PULSE 77; RESP 16; TEMP 36.7; O2SAT 99
== END 2019-06-17 17:15 | disposition home or self-care (01) | DRG 807 ==
PROVIDERS: Admitting Provider Family Medicine; Family Provider Family Medicine; PCP Family Medicine; Visit Provider Family Medicine
DX: O34.211 Maternal care for low transverse scar from previous cesarean delivery (principal); Z37.0 Single live birth; Z3A.39 39 weeks gestation of pregnancy; O99.334 Smoking (tobacco) complicating childbirth; F17.210 Nicotine dependence, cigarettes, uncomplicated; O99.284 Endocrine, nutritional and metabolic diseases complicating childbirth; E03.9 Hypothyroidism, unspecified; O99.02 Anemia complicating childbirth; D64.9 Anemia, unspecified; O77.0 Labor and delivery complicated by meconium in amniotic fluid; O76 Abnormality in fetal heart rate and rhythm complicating labor and delivery; O69.2XX0 Labor and delivery complicated by other cord entanglement, with compression, not applicable or unspecified; O75.89 Other specified complications of labor and delivery; J45.20 Mild intermittent asthma, uncomplicated
CPT/HCPCS: 12345; 36415; 51702; 59025; 85025; 85027; 88307; 99211; J2795

== ENCOUNTER 2019-07-22 08:36 | Day surgery (SDC) | payer MEDICAID, SELFPAY ==
[2019-07-18 10:03] VITALS: BMI 27.9
[2019-07-18 10:22] LABS: OR HCG Qualitative Urine Negative (Negative)
--- NOTE | 2019-07-18 10:33 | ANES.PREANE2 ---
Pre-Anesthetic Assessment Pre-Anesthetic Assessment: Height/Weight: Height 1.73 m Weight 83.461 kg Preop Diagnosis: Undesired fertility Proposed Procedure: Operation Date: 07/22/19 09:15 Proposed Procedures p Armani Carranza,Removal of Tubes Sterilization 92734 Z30.2(Bilateral) - Oliver Castaneda MD Social: Social History: Tobacco and No alcohol Exam: Pre-Anes Outpt Exam: alert, oriented x 3, clear to auscultation bilaterally and regular rate & rhythm Airway: Submandibular: WNL Cervical ROM: WNL MP: 2 Dentition: Other (poor dentation) History/ROS: No significant history except as noted Pulmonary: Pulmonary: None reported CV/HEM: CV/HEM: None reported : : None reported Hepatic: Hepatic: None reported GI: GI: None reported Metabolic: Metabolic: Thyroid Musc/skel: Musc/skel: None reported Neuropsych: Neuropsych: None reported Anesthetic Plan: ASA status: 2 Anesthesia: Anesthesia Evaluation and General Risk of > 500 ml blood loss (7ml/kg in children): No PFSH Anesthesia PFSH: Medical History (Updated 07/14/19 @ 17:54 by Oliver Castaneda MD) Anxiety Asthma, mild intermittent Depression Hypothyroidism Seasonal allergies Surgical History H/O oral surgery Cleft palate repair, 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 Reports had multiple surgeries. History of section, low transverse History of umbilical hernia repair Age 2. 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 Father No problems noted. Grandmother Thyroid disorder maternal, thyroid cancer Brother Diabetes Social History Smoking and tobacco status: current every day smoker Alcohol intake: former Former alcohol use details: On occasion prior to Substance/Drug Use: never Marital status: Legally Current occupation: Customer service Female Reproductive History: Date of last menstrual period: 09/27/18 Data Anesthesia Other Labs: Laboratory Results - last 48 hr 07/18/19 10:03 Urine HCG, Qual Negative Cardiac Studies: No Data to Display
[2019-07-22] VITALS (7 sets, daily range): BP systolic 97–115; BP diastolic 61–77; PULSE 69–88; RESP 16–25; TEMP 36.2–36.9; O2SAT 96–100
--- NOTE | 2019-07-22 08:50 | ANES.PREANE2 ---
Pre-Anesthetic Assessment Pre-Anesthetic Assessment: Height/Weight: Height 1.73 m Weight 83.461 kg Preop Diagnosis: Undesired fertility Proposed Procedure: Operation Date: 07/22/19 09:55 Proposed Procedures p Lap Fulg,Removal of Tubes Sterilization 87553 Z30.2(Bilateral) - Oliver Castaneda MD Was Beta Teodoro taken within 24 hours: N/A Last intake: > 8 hours NPO Social: Social History: Alcohol and Tobacco Exam: Pre-Anes Outpt Exam: alert, oriented x 3, clear to auscultation bilaterally and regular rate & rhythm Airway: Submandibular: WNL Cervical ROM: WNL MP: 2 Dentition: Full History/ROS: No significant history except as noted Pulmonary: Pulmonary: None reported CV/HEM: CV/HEM: None reported : : None reported Hepatic: Hepatic: None reported GI: GI: None reported Comments: GERD only with Metabolic: Metabolic: Thyroid Musc/skel: Musc/skel: None reported Neuropsych: Neuropsych: None reported Anesthetic Plan: ASA status: 2 Anesthesia: General Risk of > 500 ml blood loss (7ml/kg in children): No PFSH Anesthesia PFSH: Medical History (Updated 07/14/19 @ 17:54 by Oliver Castaneda MD) Anxiety Asthma, mild intermittent Depression Hypothyroidism Seasonal allergies Surgical History H/O oral surgery Cleft palate repair, 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 Reports had multiple surgeries. History of section, low transverse History of umbilical hernia repair Age 2. 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 Father No problems noted. Grandmother Thyroid disorder maternal, thyroid cancer Brother Diabetes Social History Smoking and tobacco status: current every day smoker cigarettes Packs smoked per day: 0.25 Years cigarettes smoked: 12 Second hand smoke exposure: Yes Alcohol intake: former Former alcohol use details: On occasion prior to Substance/Drug Use: never Caregiver/support person: Yes Lives independently: Yes Household members: spouse and children Marital status: Legally Number of children: 2 Number of grandchildren: 0 Highest education level completed: High School Graduate Current occupational status: employed Current occupation: Customer service Female Reproductive History: Date of last menstrual period: 09/27/18 Data Anesthesia Cardiac Studies: No Data to Display
[2019-07-22] MEDS: sodium chloride 0.9% 1,000 ML 30 ML IV (09:08)
[2019-07-22] MEDS: ketorolac 30 mg/mL INJ IVP (09:08)
--- NOTE | 2019-07-22 10:09 | P.HPUD_ITS ---
Surgery/Procedure H&P Update DATE OF PROCEDURE: July 22, 2019 DATE H&P PERFORMED: 07/11/19 H&P UPDATE INFORMATION: I have reviewed H&P completed within last 30 days, I have examined patient prior to procedure, No changes to prior documentation and H&P is in [facility] [place] EMR on date indicated PREOP DIAGNOSIS: Undesired fertility PLANNED PROCEDURE: Operation Date: 07/22/19 09:55 Proposed Procedures p Lap Fulg,Removal of Tubes Sterilization 02336 Z30.2(Bilateral) - Oliver Castaneda MD
--- NOTE | 2019-07-22 11:31 | PM.OP ---
Operative Report Date of procedure: July 22, 2019 Pre-op Diagnosis: Undesired fertility Post-op Diagnosis: Undesired fertility Procedure Done: Laparoscopic bilateral tubal fulguration with complete salpingectomy. Specimens removed/disposition: Right and left fallopian tubes Surgeon: Oliver Castaneda Academic Support Director: Aden Anesthesia: General Estimated blood loss (mL): 5 IV fluids (mL): 800 Complications: None Findings: First-degree uterine prolapse. Both ovaries, tubes, and uterus appeared normal. Normal-appearing appendix. Powder burn lesions in the posterior cul-de-sac with inflammation of the ovarian fossa bilaterally. Findings consistent with endometriosis. Brief History: Patient is a 23-year-old white female 4, para 2-1-1-3 who is , with delivery and 06/16/2019. She presented to the office to discuss sterilization. She had previously discussed this with Dr. Padilla and had signed Medicaid consent form with her on 03/27/2019 during the . She is now and still wished to proceed with sterilization. She is requesting complete removal of both tubes. Prior to surgery I reviewed with her that this was considered a nonreversible method and that if she ever thought she might want to have another child in the future this is not what she wanted to have done. She was still adamant that she wanted her tubes completely removed. Procedure: Patient was taken to the operating room were general anesthesia was obtained. She was prepped and draped in the usual sterile fashion in the dorsal supine position with legs in Rajan style stirrups. Sequential compression boots were placed prior to starting the case. Catheter was inserted and bladder was drained. Exam under anesthesia was performed and patient was found to have first-degree uterine prolapse. Weighted speculum was placed in the vagina and the cervix was grasped with a single-tooth tenaculum. A ZUMI was placed. The infraumbilical region was injected with 1% lidocaine with epinephrine. Skin incision was made with the knife in the lower edge of the navel and a size 5 trocar and sheath were inserted under direct visualization using an Optiview type technique. Trocar was removed and replaced with a laparoscope confirming intra-abdominal placement. The abdomen was inflated with carbon dioxide. The anterior abdominal wall was inspected and noted to be free of adhesions. In the left and right lower quadrants lateral to the inferior epigastric vessels, the skin was injected with 1% lidocaine with epinephrine. Skin incisions were made with a knife and a 5 mm trocar and sheath were inserted under direct visualization at each site. The pelvis was thoroughly inspected. She was noted to have powder burn lesions within the posterior cul-de-sac with inflammation of the bilateral ovarian fossae. The uterus, tubes, ovaries, and anterior cul-de-sac were free of endometriosis or other abnormalities. The appendix was normal in appearance. Using the Voyant sealing device, starting on the left side at the fimbriated end of the tube, the mesosalpinx was sealed and cut along the length of the tube. At the proximal end of the tube, the tube itself was sealed and cut. The fallopian tube was brought out through the port. Using the Voyant sealing device, starting on the right side at the fimbriated end of the tube, the mesosalpinx was sealed and cut along the length of the tube. At the proximal end of the tube, the tube itself was sealed and cut. The fallopian tube was brought out through the port. The dissection area was thoroughly inspected and noted to be hemostatic. The abdomen was deflated and the ports removed. The 5 mm sites were closed with single stitches of 4-0 Vicryl suture. Exofin skin glue was applied to the sites. The ZUMI was removed and there was minimal bleeding from the tenaculum site. Patient tolerated the procedure well. Sponge, needle and instrument counts were correct. DRAINS: None POSTOPERATIVE STATUS: The patient was transferred to the recovery room in satisfactory condition. DISPOSITION: Discharge to home when criteria was met. FOLLOWUP APPOINTMENT: Followup appointment is scheduled in my office on 08/04/2019. MEDICATIONS: Patient received prescriptions for: Prince 5/325, 1 to 2 tablets every 6 hours as needed for pain, #15, 0 refills Ibuprofen 800 mg, 1 tablet 3 times a day as needed for pain, #30, 0 refills She was to resume her usual home medications.
--- NOTE | 2019-07-22 11:46 | SUR.PHASEI ---
1138 PATIENT TO PACU AT THIS TIME. RR EVEN AND UNLABORED. SPO2 96% ON SIMPLE MASK. 3 INCISIONS TO ABDOMEN, CDI.
--- NOTE | 2019-07-22 11:59 | SUR.PHASEI ---
1155 PATIENT TO OPS AT THIS TIME. NO DISTRESS. MINIMAL PAIN /. INCISIONS TO ABDOMEN, CDI.
== END 2019-07-22 12:32 | disposition home or self-care (01) ==
PROVIDERS: PCP Family Medicine; Visit Provider Obstetrics & Gynecology
PROC: (CPT 58661; principal; 2019-07-22 09:55)
DX: Z30.2 Encounter for sterilization (principal); F41.9 Anxiety disorder, unspecified; J45.20 Mild intermittent asthma, uncomplicated; F32.9 Major depressive disorder, single episode, unspecified; E03.9 Hypothyroidism, unspecified; F17.210 Nicotine dependence, cigarettes, uncomplicated
CPT/HCPCS: 58670; 12345; 84703; 88302; 96374; J1100; J1885; J2001; J2405; J2704; J3010; J3490; J7030

== ENCOUNTER 2019-09-18 17:10 | Emergency (ER) | payer MEDICAID, SELFPAY ==
[2019-09-18 17:21] VITALS: BP 113/71; PULSE 94; RESP 14; TEMP 36.9; O2SAT 98; BMI 30.4
--- NOTE | 2019-09-18 17:27 | ED_ITS ---
HPI - Skin/Abscess/Foreign Bdy General: Chief complaint: Skin/Abscess/Foreign Body Stated complaint: facial swelling Time Seen by Provider: 09/18/19 17:27 Source: patient Mode of arrival: ambulatory Limitations: no limitations History of Present Illness: HPI narrative: Patient comes on with a small swollen area to the left temporal area. Patient states it started as a pimple b ut now is swollen. Patient appears well. Patient appears no acute distress. 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 Reports had multiple surgeries. History of bilateral tubal ligation (07/22/19) Laparoscopic bilateral complete salpingectomy. Performed by Dr. Castaneda at [facility] [place]. History of section, low transverse History of umbilical hernia repair Age 2. 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 Father No problems noted. Grandmother Thyroid disorder maternal, thyroid cancer Brother Diabetes Social History Smoking and tobacco status: current every day smoker cigarettes Packs smoked per day: 0.25 Years cigarettes smoked: 12 Second hand smoke exposure: Yes Alcohol intake: former Former alcohol use details: On occasion prior to Caregiver/support person: Yes Lives independently: Yes Marital status: Legally Number of children: 2 Number of grandchildren: 0 Highest education level completed: High School Graduate Current occupation: Customer service Female Reproductive History: Date of last menstrual period: 09/27/18 Physical Exam Const: COMMON NORMALS: no acute distress and patient oriented x3 GENERAL APPEARANCE: cooperative HENMT: COMMON NORMALS: normocephalic and Normal external nose present HEAD & SCALP: normal to inspection and normocephalic NOSE: Normal external nose present MOUTH: Normal oral and palatal mucosa present THROAT: posterior oropharynx normal Eye: GENERAL EYE: appearance normal, both eyes and all related structures Neck/C-Spine: COMMON NORMALS: full ROM Chest: COMMONS NORMALS: normal inspection of the chest Resp: COMMON NORMALS: normal respiratory effort EFFORT & INSPECTION: Yes able to speak in complete sentences Cardio: COMMON NORMALS: regular rate and regular rhythm RATE: regular rate RHYTHM: regular rhythm GI: COMMON NORMALS: non-tender Back/Pelvis: COMMON NORMALS: thoracic and lumbar spine normal to inspection Extremity: COMMON NORMALS: normal to inspection Neuro: COMMON NORMALS: patient oriented x3 and moves all extremities Psych: COMMON NORMALS: mental status grossly normal and cooperative Skin: NARRATIVE SKIN EXAM: 1 cm area of swelling with mild fluctuance to the left temporal region. Central pustule is noted. Procedures Abscess I/D Site: face Side (if applicable): left Local Anesthetic: lidocaine 1% and with epi Amount of anesthesia used (mL): 1 Technique: incised with #11 blade Amount of fluid expressed (mL): 0.5 Irrigation: Yes Packing used?: none Complications: pain Course Vital Signs: Vital signs: Vital Signs Temperature 98.4 F 09/18/19 17:21 Pulse Rate 94 09/18/19 17:21 Respiratory Rate 14 09/18/19 17:21 Blood Pressure 113/71 09/18/19 17:21 Pulse Oximetry 98 09/18/19 17:21 MDM - Skin/Abscess/Foreign Bdy MDM Narrative: Medical decision making narrative: Patient comes in with lesion to the left side of the face at the temporal area. On exam there is a 1 cm elevated area of skin with a central pustule. Differential diagnosis includes but not limited to abscess, acne vulgaris, cellulitis. A small incision was made on the pustule and expressed out about 1/2 mL's of purulent fluid. Patient was given 1 doxycycline orally in the emergency department and instructed to continue with doxycycline. Patient reported understanding of care plan and need for follow-up or return to the ER. Discharge Plan Discharge Patient Disposition: Home Clinical Impression: Abscess of skin or subcutaneous tissue Qualifiers: Site of cutaneous abscess: face Qualified Code(s): L02.01 - Cutaneous abscess of face Condition: Stable Prescriptions: New doxycycline hyclate 100 mg capsule 100 mg PO BID 10 Days Qty: 20 RF: 0 Discontinued cephalexin 500 mg capsule 500 mg PO QID 10 Days Qty: 40 RF: 0 Discharge Orders: Discharge Order (Routine); Ordered 09/18/19 Ordered By: Doc Gifford Referrals: Dee Padilla MD [Primary Care Provider] - Discharge Diet: Usual diet Discharge Activity: Increase activity as tolerated Activity Restrictions/Additional Instructions: Use benzoyl peroxide to pustules on the face. Take antibiotic as directed. Talk with primary care or bathhouse keeper about treatment for cystic acne. This may include the use of antibiotics such as minocycline or doxycycline, or Accutane. Follow-up with primary care for further treatment. Return to the emergency department for new concerns. Coding Level of Care Code ED Forklift Technician for Chg Fwd Exam Comprehensive
[2019-09-18] MEDS: doxycycline 100 mg Tablet PO (18:16)
[2019-09-18 18:17] VITALS: BP 121/68; PULSE 78; RESP 17; O2SAT 97
== END 2019-09-18 18:19 | disposition home or self-care (01) ==
PROVIDERS: Emergency Provider Nurse Practitioner Family; PCP Family Medicine
DX: L02.01 Cutaneous abscess of face (principal); F17.210 Nicotine dependence, cigarettes, uncomplicated
CPT/HCPCS: 10060; 12345; 99281; 99283

== ENCOUNTER → 2020-01-05 09:38 | Outpatient (BNVA) | payer MEDICAID, SELFPAY | PROVIDERS: PCP Family Medicine; Visit Provider Family Medicine Adult Medicine | DX: F31.9 Bipolar disorder, unspecified (principal); F41.9 Anxiety disorder, unspecified; F32.9 Major depressive disorder, single episode, unspecified; D64.9 Anemia, unspecified; E03.9 Hypothyroidism, unspecified; J45.20 Mild intermittent asthma, uncomplicated | CPT/HCPCS: 80053; 84443; 85025 ==

== ENCOUNTER 2020-02-03 21:43 | Emergency (ER) | payer MEDICAID, SELFPAY ==
[2020-02-03 21:46] VITALS: BP 132/80; PULSE 89; RESP 18; TEMP 36.9; O2SAT 99; BMI 32.8
--- NOTE | 2020-02-03 22:02 | W.ED.DENTAL ---
HPI - Dental/Oral General: Chief complaint: Dental/Oral Stated complaint: Dental/Oral pain upper left jaw Time Seen by Provider: 02/03/20 21:56 Source: patient Mode of arrival: ambulatory Limitations: no limitations History of Present Illness: HPI Narrative: 24-year-old female states she has a dental pain left lower molar over the last week. States pain is a 5 out of 10. She states she is trying to get into see a dentist. She denies any difficulty swallowing. She denies any difficulty opening her mouth. She denies any worsening improving factors. Associated symptoms: Denies fever(s) Review of Systems Const: Denies: fever(s), chills, body aches or change in appetite Eyes: Denies: blurry vision or eye discomfort ENMT: Reports: dental pain; Denies: throat pain Card: Denies: chest pain Resp: Denies: dyspnea GI: Denies: abdominal pain, nausea, vomiting or diarrhea : Denies: dysuria Musc: Denies: neck pain or back pain Skin/Breast: Denies: rash Neuro: Denies: headache(s) Psych: Denies: depression Joey/Lymph: Denies: easy bruising All/Imm: Denies: urticaria PFSH ED PFSH: Medical History (Updated 02/03/20 @ 22:01 by Erin Wright MD) Anemia Anxiety and depression Asthma, mild intermittent Bipolar 1 disorder, depressed Hypothyroidism Seasonal allergies Surgical History H/O oral surgery Cleft palate repair, 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 Reports had multiple surgeries. History of bilateral tubal ligation (07/22/19) Laparoscopic bilateral complete salpingectomy. Performed by Dr. Castaneda at [facility] [place]. History of section, low transverse History of umbilical hernia repair Age 2. 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 Father No problems noted. Grandmother Thyroid disorder maternal, thyroid cancer Brother Diabetes Social History (Updated 01/05/20 @ 08:42 by Vanesa Hines LPN) Smoking and tobacco status: current every day smoker cigarettes Packs smoked per day: 1 Years cigarettes smoked: 12 Second hand smoke exposure: Yes Alcohol intake: former Former alcohol use details: On occasion prior to Caregiver/support person: Yes Lives independently: Yes Marital status: Number of children: 3 Number of grandchildren: 0 Highest education level completed: High School Graduate Current occupational status: employed Current occupation: Customer service Female Reproductive History: Date of last menstrual period: 09/27/18 Physical Exam Const: COMMON NORMALS: no acute distress, patient oriented x3 and healthy appearing HENMT: COMMON NORMALS: normocephalic and atraumatic HEAD & SCALP: normocephalic and atraumatic OTHER: Poor dentition with tenderness over left lower molar no abscess or trismus Eye: COMMON NORMALS: Equal, round and reactive pupils present and EOMs intact bilaterally PUPIL: Yes Equal, round and reactive pupils present Neck/C-Spine: COMMON NORMALS: full ROM and supple Chest: COMMONS NORMALS: normal inspection of the chest Resp: COMMON NORMALS: normal respiratory effort Cardio: COMMON NORMALS: regular rate RATE: regular rate GI: COMMON NORMALS: Normal to inspection, nondistended, normoactive bowel sounds present, Soft to palpation, non-tender and no masses PALPATION: Yes Soft to palpation Extremity: COMMON NORMALS: normal to inspection and full ROM Neuro: COMMON NORMALS: patient oriented x3, moves all extremities and no focal motor deficits Psych: COMMON NORMALS: mental status grossly normal, Normal thought process present and cooperative THOUGHT PROCESS: Normal thought process present Skin: COMMON NORMALS: no rashes or lesions noted and no wounds GENERAL SKIN EXAM: no rashes or lesions noted Course Vital Signs: Vital signs: Vital Signs Temperature 98.5 F 02/03/20 21:46 Pulse Rate 89 02/03/20 21:46 Respiratory Rate 18 02/03/20 21:46 Blood Pressure 132/80 02/03/20 21:46 Pulse Oximetry 99 02/03/20 21:46 MDM - Dental/Oral MDM Narrative: Medical decision making narrative: Patient presents with dental pain. Patient has no abscess formation or trismus. Will place on antibiotics along with Naprosyn and she is to follow-up with a dentist. She is return if worsening. Discharge Plan Discharge Patient Disposition: Home Clinical Impression: Toothache Condition: Stable Prescriptions: New Keflex 500 mg capsule 500 mg PO Q6H 7 Days Qty: 28 RF: 0 Naprosyn 500 mg tablet 500 mg PO BID PRN (Reason: pain) Qty: 20 RF: 0 No Action sertraline 50 mg tablet 50 mg PO DAILY Qty: 30 RF: 1 azithromycin 250 mg tablet See Rx Instructions PO .COMPLEX Qty: 6 RF: 0 methylprednisolone [Medrol (Maxx)] 4 mg tablets,dose pack See Rx Instructions PO PER PKG DIR Qty: 21 RF: 0 Discharge Orders: Discharge ED (Routine); Ordered 02/03/20 Ordered By: Erin Wright Referrals: Dee Padilla MD [Primary Care Provider] - Discharge Diet: Advance as tolerated Discharge Activity: Resume usual activity Patient Instructions: Toothache (ED) Coding Level of Care Code ED Worksite Wellness Practitioner for Charu Turner
[2020-02-03 23:03] VITALS: BP 132/80; PULSE 89; RESP 18; O2SAT 99
== END 2020-02-03 22:50 | disposition home or self-care (01) ==
LOC: ER 22:06
PROVIDERS: Emergency Provider Emergency Medicine; PCP Family Medicine
DX: K08.89 Other specified disorders of teeth and supporting structures (principal); F17.210 Nicotine dependence, cigarettes, uncomplicated
CPT/HCPCS: 12345; 99281

== ENCOUNTER 2020-04-22 19:37 | Emergency (ER) | payer MEDICAID, SELFPAY ==
--- NOTE | 2020-04-22 19:39 | XR_ITS ---
WS: [id number] Right wrist, 3 views, 04/22/2020 Clinical Data: rt wrist injury Comparison: Right wrist, 10/03/2017. Findings: No fractures or dislocations are seen. The carpal bones are intact. There is no soft tissue swelling. The distal radius and ulna are not remarkable. XR/XR wrist RT min 3V* [id number] Impression: Negative right wrist.
[2020-04-22 19:46] VITALS: BP 139/83; PULSE 110; RESP 16; TEMP 36.3; O2SAT 98; BMI 30.4
--- NOTE | 2020-04-22 19:51 | ED_ITS ---
HPI - Extremity Problem General: Chief complaint: Extremity Injury, Upper Stated complaint: R WRIST INJURY Time Seen by Provider: 04/22/20 19:38 Source: patient Mode of arrival: ambulatory Limitations: no limitations History of Present Illness: HPI Narrative: 24 -year-old female patient presents to the emergency department with onset of right wrist pain. She reports was loading carpet in a van when the carpet impinged her right hand and wrist. She states pain with movement of the right wrist, pain radiates to the hand and to the right upper extremity. She states did not take anything for pain, states, just came straight here . MD Complaint: extremity pain and extremity swelling Onset (ago): hour(s) (1) Pain Consistency: intermittent Location: right and upper extremity Severity scale (1-10): 5 Quality: aching and dull Radiation: proximal and distal Relieving factors: immobilization and rest Exacerbating factors: range of motion Associated symptoms: Reports no associated symptoms; Deny chest pain, fever(s) or rash Review of Systems General: Reports: 10 or more systems reviewed and unremarkable except in HPI and below Const: Denies: fever(s), chills or diaphoresis Eyes: Denies: blurry vision or eye redness ENMT: Denies: throat pain, dental pain or disequilibrium Card: Denies: chest pain, palpitations or irregular heart rhythm Resp: Denies: dyspnea, productive cough, non-productive cough or wheezing GI: Denies: abdominal pain, nausea or vomiting : Denies: difficulty voiding or dysuria Musc: Reports: joint pain and joint swelling; Denies: neck pain or back pain Skin/Breast: Denies: rash or pruritus Neuro: Denies: headache(s), weakness in extremities or behavioral changes Psych: Denies: anxiety, depression or change in appetite Joey/Lymph: Denies: easy bruising PFSH ED PFSH: Medical History Anemia Anxiety and depression Asthma, mild intermittent Bipolar 1 disorder, depressed Hypothyroidism Seasonal allergies Surgical History H/O oral surgery Cleft palate repair, 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 Reports had multiple surgeries. History of bilateral tubal ligation (07/22/19) Laparoscopic bilateral complete salpingectomy. [place] [facility] [place] History of section, low transverse History of umbilical hernia repair Age 2. 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 Father No problems noted. Grandmother Thyroid disorder maternal, thyroid cancer Brother Diabetes Social History Smoking and tobacco status: current every day smoker cigarettes Packs smoked per day: 1 Years cigarettes smoked: 12 Second hand smoke exposure: Yes Alcohol intake: former Former alcohol use details: On occasion prior to Caregiver/support person: Yes Lives independently: Yes Marital status: Number of children: 3 Number of grandchildren: 0 Highest education level completed: High School Graduate Current occupational status: employed Current occupation: Customer service Female Reproductive History: Date of last menstrual period: 01/13/20 Physical Exam Const: COMMON NORMALS: no acute distress, patient oriented x3, healthy appearing and alert GENERAL APPEARANCE: cooperative, comfortable and well hydrated HENMT: COMMON NORMALS: normocephalic, Normal external nose present and moist oral mucous membranes HEAD & SCALP: normocephalic NOSE: Normal external nose present Eye: COMMON NORMALS: Equal, round and reactive pupils present and EOMs intact bilaterally GENERAL EYE: appearance normal, both eyes and all related structures PUPIL: Yes Equal, round and reactive pupils present Neck/C-Spine: COMMON NORMALS: full ROM and no lymphadenopathy GENERAL: Yes normal visual inspection and Yes trachea midline CERVICAL SPINE: Yes cervical ROM normal Lymph: LYMPHATIC: no lymphadenopathy noted Chest: COMMONS NORMALS: normal inspection of the chest Resp: COMMON NORMALS: normal respiratory effort and clear to auscultation bilaterally AUSCULTATION: clear to auscultation bilaterally Cardio: COMMON NORMALS: regular rate, regular rhythm, S1 normal heart sound present, S2 normal heart sound present and Peripheral pulses 2+ throughout RATE: regular rate RHYTHM: regular rhythm HEART SOUNDS: S1 normal heart sound present and S2 normal heart sound present PERIPHERAL PULSES: Peripheral pulses 2+ throughout GI: COMMON NORMALS: Soft to palpation and non-tender INSPECTION: Yes normal to inspection PALPATION: Yes Soft to palpation : COMMON NORMALS: Yes no CVA tenderness BLADDER/KIDNEY EXAM: Yes no CVA tenderness Back/Pelvis: COMMON NORMALS: no CVA tenderness and thoracic and lumbar spine normal to inspection Extremity: COMMON NORMALS: normal to inspection, capillary refill normal, no clubbing, cyanosis or edema and no pedal edema GENERAL: Yes normal exam except as noted RIGHT UPPER EXTREMITY: Yes wrist (Not able to reproduce pain to the right hand, digit exam intact distally.) Right wrist: Yes inspection (slight edema dorsally), Yes palpation (dorsal tenderness), Yes ROM (limited supination/pronation due to pain) and Yes neurovascular exam (Distally intact) OTHER: Not able to reproduce pain to the right elbow or shoulder Neuro: COMMON NORMALS: patient oriented x3 and no focal motor deficits SENSORIUM/ORIENTATION: Yes alert Psych: COMMON NORMALS: mental status grossly normal, Normal thought process present and cooperative ACTIVITY/MOTOR BEHAVIOR: Yes appropriate eye contact THOUGHT PROCESS: Normal thought process present Skin: COMMON NORMALS: no rashes or lesions noted and turgor normal GENERAL SKIN EXAM: no rashes or lesions noted and turgor normal Course Vital Signs: Vital signs: Vital Signs Temperature 97.3 F L 04/22/20 19:46 Pulse Rate 110 H 04/22/20 20:03 Respiratory Rate 18 04/22/20 20:03 Blood Pressure 139/83 04/22/20 19:46 Pulse Oximetry 99 04/22/20 20:03 MDM - Extremity (Nontraumatic) MDM Narrative: Medical decision making narrative: Imaging Data^: Xray Ortho: My impression: Right wrist series revealed questionable avulsion fracture right radius. Formal radiology interpretation pending. Discharge Plan Discharge Patient Disposition: Home Clinical Impression: Distal radial fracture Qualifiers: Encounter type: initial encounter Fracture type: closed Fracture morphology: other fracture Laterality: right Qualified Code(s): S52.591A - Other fractures of lower end of right radius, initial encounter for closed fracture Crush injury of hand Qualifiers: Encounter type: initial encounter Laterality: right Qualified Code(s): S67.21XA - Crushing injury of right hand, initial encounter Condition: Stable Prescriptions: No Action sertraline 50 mg tablet 50 mg PO DAILY Qty: 30 RF: 1 azithromycin 250 mg tablet See Rx Instructions PO .COMPLEX Qty: 6 RF: 0 methylprednisolone [Medrol (Maxx)] 4 mg tablets,dose pack See Rx Instructions PO PER PKG DIR Qty: 21 RF: 0 Naprosyn 500 mg tablet 500 mg PO BID PRN (Reason: pain) Qty: 20 RF: 0 Discharge Orders: Discharge ED (Routine); Ordered 04/22/20 Ordered By: Tricia Lucio Referrals: Jose Kessler MD [Primary Care Provider] - Discharge Diet: Usual diet Discharge Activity: Limit activity as instructed Patient Instructions: Crush Injury, Wrist Injury (ED), Wrist Fracture in Adults (ED), Opioid Safety Activity Restrictions/Additional Instructions: Velcro wrist splint has been placed, you will need to follow-up with your primary care provider in 5 to 7 days for reevaluation Apply ice/cool compresses as needed for pain and swelling, do not apply ice directly to the skin Ibuprofen/Tylenol as needed for pain, take according to instructions. Keep the right hand and wrist elevated to help with pain and swelling Return to the emergency department if you develop worsening symptoms such as increased pain redness or swelling of the right arm. Coding Level of Care Code ED Grain Manager for Mamieg Fwd Exam Comprehensive
[2020-04-22 20:03] VITALS: PULSE 110; RESP 18; O2SAT 99
[2020-04-22] MEDS: ibuprofen 600 mg Tablet PO (20:37)
[2020-04-22 20:38] VITALS: BP 134/78; PULSE 102; RESP 18; O2SAT 100
== END 2020-04-22 20:39 | disposition home or self-care (01) ==
PROVIDERS: Emergency Provider Nurse Practitioner Family; PCP Family Medicine Adult Medicine
DX: S52.591A Other fractures of lower end of right radius, initial encounter for closed fracture (principal); S67.21XA Crushing injury of right hand, initial encounter; F17.210 Nicotine dependence, cigarettes, uncomplicated; W23.0XXA Caught, crushed, jammed, or pinched between moving objects, initial encounter
CPT/HCPCS: 29125; 73110; 99283

== ENCOUNTER → 2020-11-12 12:26 | Outpatient (BNVA) | payer MEDICAID, SELFPAY | PROVIDERS: PCP Family Medicine Adult Medicine; Visit Provider Registered Nurse Neonatal Intensive Care | DX: R06.02 Shortness of breath (principal); Z20.822 Contact with and (suspected) exposure to COVID-19 | CPT/HCPCS: 87635 ==

== ENCOUNTER 2020-11-26 21:11 | Emergency (ER) | payer MEDICAID, SELFPAY ==
[2020-11-26 21:38] VITALS: BP 124/78; PULSE 85; RESP 18; TEMP 36.7; O2SAT 98; BMI 34.9
--- NOTE | 2020-11-26 22:12 | W.ED.ABDPA2 ---
HPI - Abdominal Pain General: Chief Complaint: Abdominal Pain Stated Complaint: Diarrhea, nausea, vomiting Time Seen by Provider: 11/26/20 22:12 History of Present Illness: HPI narrative: Ms. Rivera is a 25-year-old lady who presents emergency department due to diarrhea and vomiting. Symptom onset was approximately 5 days ago. She has had multiple episodes which she describes as every 1/2 hour of watery loose stools. She has associated mild abdominal cramping but not out of portion to expected. This has persisted. She has attempted to stay hydrated however feels like she cannot keep up. Additionally she had one episode of nonbilious and nonbloody emesis earlier today. She was recently treated for bronchitis however did not receive antibiotics at that time only albuterol. She denies other signs of systemic illness. No 1 around her a similar symptoms. No other specific exacerbating or relieving factors identified. No frequent episodes in the past. 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 Reports had multiple surgeries. History of bilateral tubal ligation (07/22/19) Laparoscopic bilateral complete salpingectomy. Performed by Dr. Castaneda at [facility] [place]. History of section, low transverse History of umbilical hernia repair Age 2. 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 Father No problems noted. Grandmother Thyroid disorder maternal, thyroid cancer Brother Diabetes Social History Smoking and tobacco status: current every day smoker cigarettes Packs smoked per day: 1 Years cigarettes smoked: 12 Second hand smoke exposure: Yes Alcohol intake: former Former alcohol use details: On occasion prior to Desire information about alcohol rehabilitation?: No Caregiver/support person: Yes Lives independently: Yes Marital status: Number of children: 3 Number of grandchildren: 0 Highest education level completed: High School Graduate Current occupational status: employed Current occupation: Customer service Female Reproductive History: Date of last menstrual period: 01/13/20 Physical Exam Narrative: EXAM NARRATIVE: GENERAL/CONSTITUTIONAL - well-appearing. No acute distress. Eyes - PERRL, no conjunctival injection ENMT - Atraumatic external nose and ears. Dry mucous membranes NECK - supple. trachea midline CARDIOVASCULAR - regular rate and rhythm. Peripheral pulses 2+ and equal RESPIRATORY -clear to auscultation bilaterally. No retractions or accessory muscle use. ABDOMEN/GI - Nontender/Nondistended. No tenderness to percussion or evidence of peritonitis MSK - Extremities without obvious deformity or tenderness to palpation SKIN - Warm, Dry NEURO - alert and appropriately oriented. Moves all extremities equally. Course ED course: - Patient was seen and evaluated by me at bedside - Patient placed on cardiac monitors, IV access obtained - Initial evaluation notable for no acute distress, nontoxic appearance. Mild dehydration evidence on clinical exam. Benign abdominal exam. -Symptom treatment ordered - Labs notable for minimal leukocytosis, microcytosis noted, thrombocytosis. Metabolic panel with mild hypokalemia, creatinine perhaps minimally elevated. -Given abdominal exam will defer imaging - Upon serial reexamination after treatment the patient was improved after fluids and repeat treatment x1 - Based on patient history, evaluation, labs, and imaging as interpreted the most likely cause of the patient's condition is unclear though does not require further imaging or evaluation at this time, likely viral in nature - The results of ED evaluation were discussed with the patient including prescriptions and/or symptomatic cares (if applicable) including appropriate and responsible use, followup plan, and return precautions. The patient verbalized understanding and felt safe for discharge. - Patient discharged in satisfactory condition. Vital Signs: Vital signs: Vital Signs Temperature 98.1 F 11/26/20 21:38 Pulse Rate 86 11/27/20 02:27 Respiratory Rate 18 11/27/20 02:27 Blood Pressure 124/76 11/27/20 02:27 Pulse Oximetry 97 11/27/20 02:27 MDM - Abdominal Pain Medical Records: Attestation: I reviewed the patient's medical records. Lab Data: Attestation: I reviewed the patient's lab results. Labs: Lab Results 11/26/20 11/26/20 11/26/20 21:45 21:45 22:10 WBC 10.3 10^3/uL H 10 ^3/uL (4.0-10.0) RBC 4.78 10^6/uL 10^6 /uL (4.1-5.3) Hgb 11.5 g/dL g/dL (11.5-15.3) Hct 36.5 % L % (37.0-47.0) MCV 76.4 fl L fl (81-99) MCH 24.1 pg L pg (28.0-34.0) MCHC 31.5 g/dL g/dL (30.0-36.0) RDW 17.7 % H % (12.1-15.1) Plt Count 478 10^3/cmm H 10 ^3/cmm (130-400) MPV 10.1 fL fL (7.4-10.4) Neut % (Auto) 72.7 % % Lymph % (Auto) 14.4 % % [place] % (Auto) 8.3 % % Eos % (Auto) 3.6 % % Baso % (Auto) 0.7 % % Neut # (Auto) 7.51 10^3/uL 10^3 /uL (1.8-7.7) Lymph # (Auto) 1.5 10^3/uL 10^3/ uL (0.8-4.8) [place] # (Auto) 0.9 10^3/uL 10^3/ uL (0.2-0.9) Eos # (Auto) 0.4 10^3/uL 10^3/ uL (0.0-0.8) Baso # (Auto) 0.1 10^3/uL 10^3/ uL (0.0-0.1) Nucleated RBC % (a uto) 0 % % Nucleated RBCs # 0.0 /100WBC /100W BC Sodium Potassium Chloride Carbon Dioxide Anion Gap BUN Creatinine GFR Calculation Glucose Calculated Osmolal ity Calcium Total Bilirubin AST ALT Alkaline Phosphata se Total Protein Albumin Globulin Lipase TSH Free T4 HCG, Qual Negative (Negative) Urine Color Yellow (Yellow) Urine Appearance Sl hazy (CLEAR) Urine pH 5 (5-7) Ur Specific Gravit y 1.010 (1.005-1.030) Urine Protein 1+ H (Negative) Urine Glucose (UA) Norm (Normal) Urine Ketones Negative (Negative) Urine Blood 2+ H (Negative) Urine Nitrate Negative (Negative) Urine Bilirubin Neg (Negative) Urine Urobilinogen Norm mg/dL mg/dL (Negative) Ur Leukocyte Ale ase Negative (Negative) Urine RBC 0-4 /hpf H /hpf (0-2) Urine WBC 15-25 /hpf H /hpf (0-5) Ur Squamous Epith Cells 55-80 /hpf H /hpf (0-5) Amorphous Sediment Not Reportable Urine Bacteria 2+ /hpf H /hpf (NONE) Hyaline Casts 10-15 /lpf H /lpf 11/26/20 11/26/20 22:10 22:10 WBC RBC Hgb Hct MCV MCH MCHC RDW Plt Count MPV Neut % (Auto) Lymph % (Auto) [place] % (Auto) Eos % (Auto) Baso % (Auto) Neut # (Auto) Lymph # (Auto) [place] # (Auto) Eos # (Auto) Baso # (Auto) Nucleated RBC % (a uto) Nucleated RBCs # Sodium 139 mmol/L mmol/L (136-145) Potassium 3.4 mmol/L L mmol /L (3.5-5.1) Chloride 99 mmol/L mmol/L (98-107) Carbon Dioxide 26 mmol/L mmol/L (22-29) Anion Gap 17.4 (5-19) BUN 11 mg/dL mg/dL (6-20) Creatinine 1.1 mg/dL H mg/dL (0.5-0.9) GFR Calculation 60.0 mL/min L mL/ min (90-130) Glucose 91 mg/dL mg/dL (65-115) Calculated Osmolal ity 287 mOsm/kg mOsm/ kg (285-295) Calcium 9.3 mg/dL mg/dL (8.5-10.5) Total Bilirubin 0.3 mg/dL mg/dL (0.15-1.2) AST 8 U/L U/L (0-32) ALT < 5 U/L U/L (0-33) Alkaline Phosphata se 121 IU/L H IU/L (35-105) Total Protein 7.5 g/dL g/dL (6.6-8.7) Albumin 4.5 g/dL g/dL (3.5-5.2) Globulin 3.0 g/dL g/dL (1.3-4.6) Lipase 14 U/L U/L (13-60) TSH 9.99 uIU/mL H uIU /mL (0.27-4.20) Free T4 1.28 ng/dL ng/dL (0.82-1.77) HCG, Qual Urine Color Urine Appearance Urine pH Ur Specific Gravit y Urine Protein Urine Glucose (UA) Urine Ketones Urine Blood Urine Nitrate Urine Bilirubin Urine Urobilinogen Ur Leukocyte Ale ase Urine RBC Urine WBC Ur Squamous Epith Cells Amorphous Sediment Urine Bacteria Hyaline Casts Discharge Plan Discharge Patient Disposition: Home Clinical Impression: Diarrhea, Nausea & vomiting Condition: Stable Prescriptions: New ondansetron 4 mg tablet,disintegrating 4 mg PO Q8H 5 Days Qty: 15 RF: 0 No Action ibuprofen 200 mg capsule 200 mg PO Q6H PRNRF: 0 albuterol sulfate [Ventolin HFA] 90 mcg/actuation HFA aerosol inhaler 2 puff inhalation Q6H PRN (Reason: shortness of breath or wheezing) Qty: 8.5 RF: 0 amoxicillin 875 mg tablet 875 mg PO BID 7 Days Qty: 14 RF: 0 bupropion HCl 150 mg tablet extended release 24 hr 150 mg PO QAM Qty: 30 RF: 3 Discharge Orders: Discharge ED (Routine); Ordered 11/27/20 Ordered By: Daniel Hernandez Referrals: Jose Kessler MD [Primary Care Provider] - Discharge Diet: Advance as tolerated and Clear Liquid Discharge Activity: Resume usual activity Patient Instructions: Diarrhea - Adult, Acute Nausea and Vomiting (ED) Activity Restrictions/Additional Instructions: Followup with your PCP. Return as needed. Coding Level of Care Code ED [facility] Nursery Assistant for Charu Turner
[2020-11-26 22:45] LABS: Basophils # 0.1 10^3/uL (0.0-0.1); Basophils % 0.7 %; Eosinophils # 0.4 10^3/uL (0.0-0.8); Eosinophils % 3.6 %; Hematocrit 36.5 % (37.0-47.0); Hemoglobin 11.5 g/dL (11.5-15.3); Lymphocytes # 1.5 10^3/uL (0.8-4.8); Lymphocytes % 14.4 %; Mean Corpuscular HGB Conc 31.5 g/dL (30.0-36.0); Mean Corpuscular Hemoglobin 24.1 pg (28.0-34.0); Mean Corpuscular Volume 76.4 fl (81-99); Mean Platelet Volume 10.1 fL (7.4-10.4); Monocytes # 0.9 10^3/uL (0.2-0.9); Monocytes % 8.3 %; Neutrophils # 7.51 10^3/uL (1.8-7.7); Neutrophils % 72.7 %; Nucleated Red Blood Cells % 0 %; Platelet Count 478 10^3/cmm (130-400); Red Blood Count 4.78 10^6/uL (4.1-5.3); Red Cell Distribution Width 17.7 % (12.1-15.1); White Blood Count 10.3 10^3/uL (4.0-10.0)
[2020-11-26] MEDS: ondansetron 2 mg/ML SDV 2 mL 4 MG IVP (22:46)
[2020-11-26] MEDS: lactated ringers 1,000 ML 999 ML IV (22:47)
[2020-11-26 23:04] LABS: HCG Qualitative Urine. Negative (Negative)
[2020-11-26 23:16] LABS: Alanine Aminotransferase < 5 U/L (0-33); Albumin Level 4.5 g/dL (3.5-5.2); Alkaline Phosphatase 121 IU/L (35-105); Aspartate Amino Transferase 8 U/L (0-32); Blood Urea Nitrogen 11 mg/dL (6-20); Calcium 9.3 mg/dL (8.5-10.5); Carbon Dioxide 26 mmol/L (22-29); Glucose 91 mg/dL (65-115); Lipase 14 U/L (13-60); Thyroid Stimulating Hormone 9.99 uIU/mL (0.27-4.20); Total Bilirubin 0.3 mg/dL (0.15-1.2); Total Protein 7.5 g/dL (6.6-8.7)
[2020-11-26 23:39] LABS: Add Urine Microscopic? YES; Bilirubin Urine Neg (Negative); Blood Urine 2+ (Negative); Glucose Urine UA Norm (Normal); Ketones Urine Negative (Negative); Leukocyte Esterase Urine Negative (Negative); Nitrate Urine Negative (Negative); Protein Urine 1+ (Negative); Urine Appearance SL Hazy (CLEAR); Urine Color Yellow (Yellow); Urobilinogen Urine Norm (Negative); pH Urine 5 (5-7)
[2020-11-26 23:42] LABS: Add Urine Culture? No; Bacteria Urine 2+ /hpf; RBC Urine 0-4 /hpf (0-2); Squamous Epithelial Cell Urine 55-80 /hpf (0-5); WBC Urine 15-25 /hpf (0-5)
[2020-11-26 23:43] LABS: Anion Gap 17.4 (5-19); Chloride 99 mmol/L (98-107); Osmolality Calculated 287 mOsm/kg (285-295); Potassium 3.4 mmol/L (3.5-5.1); Sodium 139 mmol/L (136-145)
[2020-11-27 00:28] LABS: Free T4 Free Thyroxine 1.28 ng/dL (0.82-1.77)
[2020-11-27] MEDS: lactated ringers 1,000 ML 999 ML IV (01:00)
[2020-11-27] MEDS: metoclopramide 5 mg/mL SDV 2 mL 10 MG IVP (01:02)
[2020-11-27 01:44] VITALS: BP 124/76; PULSE 86; RESP 18; O2SAT 97
[2020-11-27 02:27] VITALS: BP 124/76; PULSE 86; RESP 18; O2SAT 97
== END 2020-11-27 02:20 | disposition home or self-care (01) ==
PROVIDERS: Emergency Provider Emergency Medicine; PCP Family Medicine Adult Medicine
DX: R19.7 Diarrhea, unspecified (principal); R11.2 Nausea with vomiting, unspecified; F17.210 Nicotine dependence, cigarettes, uncomplicated
CPT/HCPCS: 80053; 81001; 81025; 83690; 84439; 84443; 85025; 96361; 96374; 96375; 99284; J2405; J2765